=== PATIENT | female | born 1990 | race Hispanic/Latino ===

== ENCOUNTER 2017-02-17 08:21 | Emergency (ER) | payer OTHER, SELFPAY ==
[2017-02-17] MEDS ORDERED: Bicillin LA 1.2 MILLION UNITS/2 ML SYRINGE IM SCH (09:45)
[2017-02-17] MEDS ORDERED: Dexamethasone 4 mg/ml Vial ONE (10:18)
== END 2017-02-17 10:32 | disposition home or self-care (01) ==
LOC: ERS 08:21
DX: J02.0 Streptococcal pharyngitis (principal)
CPT/HCPCS: 81025; 87430; 96372; J0561; J1100